=== PATIENT | male | born 1985 | race Two or more races ===

== ENCOUNTER 2022-06-17 20:42 | Emergency (ER) | payer OTHER ==
[~2022-06-17] VITALS: Ht 175.3 cm; Wt 90.7 kg
[2022-06-17] MEDS ORDERED: ACETAMINOPHEN ES 500 MG TABLET PO ONE (21:15)
[2022-06-17] MEDS ORDERED: ACETAMINOPHEN ES 500 MG TABLET ONE (21:15)
--- NOTE | 2022-06-17 21:39 | NUR ---
Patient discharged to home in stable condition. Written and verbal after care instructions given. Patient verbalizes understanding of instructions. Stressed follow up or return to ER for worsening s/s.
== END 2022-06-17 21:39 | disposition home or self-care (01) ==
LOC: ER 20:42
DX: M79.672 Pain in left foot (principal); M79.671 Pain in right foot; J45.909 Unspecified asthma, uncomplicated; F17.210 Nicotine dependence, cigarettes, uncomplicated
CPT/HCPCS: A4663; A9150